=== PATIENT | female | born 1990 | race Caucasian/White ===

== ENCOUNTER → 2022-12-18 | Outpatient (CLI) | payer SELFPAY, OTHER ==
--- NOTE | 2022-12-18 09:48 | US_ITS ---
INDICATION: amenorrhea EXAMINATION: Ultrasound US Transvaginal Non-OB TECHNIQUE: Transvaginal (for optimal evaluation of the adnexa) pelvic ultrasound was performed. Grayscale, spectral waveform, and color flow Doppler evaluation of the adnexa. COMPARISON: No relevant prior comparison study available FINDINGS: UTERUS: The uterus measures 8.3 x 3.0 x 4.1 cm. There is no uterine mass. The endometrial stripe measures 9.2 mm in AP diameter which is within normal limits. RIGHT OVARY: 2.9 x 2.8 x 2.6 cm. There are peripherally located subcentimeter cysts. Non-enlarged, normal echogenicity. There is normal arterial inflow and venous outflow present in the right ovary. LEFT OVARY: 2.7 x 1.8 x 2.9 cm. There are peripherally located subcentimeter cysts. Non-enlarged, normal echogenicity. There is normal arterial inflow and venous outflow present in the left ovary. FREE FLUID: None. US/Transvaginal Non- IMPRESSION: Bilateral peripherally located subcentimeter ovarian cysts, in the appropriate clinical setting may be secondary to polycystic ovarian syndrome. Electronically Signed: Cathy Klein MD at 10:28 EDT ,
[2022-12-18 15:47] LABS: Estradiol 51.7 pg/mL; Luteinizing Hormone 9.7 mIU/mL
[2022-12-20 16:09] LABS: 17-Hydroxyprogesterone 82 ng/dL (.)
== END | disposition home or self-care (01) ==
PROVIDERS: PCP Registered Nurse; Referring Provider Registered Nurse; Visit Provider Registered Nurse
DX: N91.2 Amenorrhea, unspecified (principal)
CPT/HCPCS: 36415; 76830; 82670; 83001; 83002; 83498